=== PATIENT | male | born 1995 | race African-American/Black ===

== ENCOUNTER 2017-09-06 11:55 | Emergency (ER) | payer BC | END 2017-09-06 12:15 | LOC: JD.ED 11:55 | DX: Z53.21 Procedure and treatment not carried out due to patient leaving prior to being seen by health care provider (principal) ==

== ENCOUNTER 2019-08-06 11:58 | Emergency (ER) | payer BC ==
[2019-08-06] MEDS ORDERED: Ketorolac 60 MG/2 ML SDV IM ONE (12:24)
--- NOTE | 2019-08-06 12:26 | EDM.PDOC ---
ED HPI GENERAL MEDICAL PROBLEM - General Chief Complaint: ENT Problem Stated Complaint: DENTAL COMPLAINT Time Seen by Provider: 08/06/19 12:03 Source of Information: Reports: Patient, RN Notes Reviewed History Limitations: Reports: No Limitations - History of Present Illness INITIAL COMMENTS - FREE TEXT/NARRATIVE: Patient is a 24-year-old male who presents to the ED for the evaluation of a dental complaint. Patient notes that he has been having some issues with a tooth on the upper left molar side, this started around 2 or 3 days ago. Patient states that the pain radiates into his left ear, and gives him a headache at times. Patient notes he is from [place], and has not seen a dentist in [facility], but states that he had a dental cleaning around 6 or 7 months ago. Patient has been taking some Tylenol for pain relief, and this is not been providing much relief at all. Patient thought that he may have had a fever 1 day ago, but did not have a thermometer to check this at home. He states that he felt hot and cold. Patient would rate his pain at an 8 out of 10 today. He denies any chest pain, shortness of breath, nausea/vomiting/ diarrhea, or throat pain at this time. 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 Left Oral/Mouth Pain Score (Numeric/FACES): 8 - Related Data Allergies Allergy/AdvReac Type Severity Reaction Status Date / Time No Known Allergies Allergy Verified 08/06/19 12:07 Home Meds: Home Meds Amoxicillin/Clavulanate K [Augmentin 875-125 MG] 1 tab PO BID #14 tablet [Rx] Past Medical History - Past Health History Medical/Surgical History: Denies Medical/Surgical History Social & Family History - Tobacco Use Smoking Status *Q: Never Smoker - Caffeine Use Caffeine Use: Reports: Tea - Recreational Drug Use Recreational Drug Use: No ED ROS ENT - Review of Systems Review Of Systems: See Below Constitutional: Denies: Fever, Chills, Decreased Appetite HEENT: Reports: Dental Pain (Left upper molar). Denies: Ear Pain, Throat Pain Respiratory: Denies: Shortness of Breath Cardiovascular: Denies: Chest Pain GI/Abdominal: Denies: Diarrhea, Nausea, Vomiting Neurological: Reports: Headache (sometimes from the toothache) ED EXAM, ENT - Physical Exam Exam: See Below Exam Limited By: No Limitations General Appearance: Alert, WD/WN, No Apparent Distress Eye Exam: Bilateral Eye: EOMI, Normal Inspection, PERRL Ears: Normal External Exam, Normal Canal, Hearing Grossly Normal, Normal TMs Nose: Normal Inspection Mouth/Throat: Normal Inspection, Normal Gums, Normal Lips, Normal Oropharynx, Normal Teeth (dentition appears in fair repair), Dental Pain (dental juan on medial side of Left upper molar, this did seem to be the cause of his pain). No : Tonsillar Swelling, Trismus Head: Atraumatic, Normocephalic Neck: Normal Inspection, Supple, Non-Tender, Full Range of Motion Respiratory/Chest: No Respiratory Distress, Lungs Clear, Normal Breath Sounds, No Accessory Muscle Use, Chest Non-Tender Cardiovascular: Normal Peripheral Pulses, Regular Rate, Rhythm, No Murmur GI/Abdominal: Normal Bowel Sounds, Soft, Non-Tender, No Distention, No Mass Extremities: Normal Inspection, Normal Capillary Refill Neurological: Alert, Oriented, Normal Cognition, No Motor/Sensory Deficits Psychiatric: Normal Affect, Normal Mood Skin: Warm, Dry, Intact, Normal Color, No Rash Course - Vital Signs Last Recorded V/S: Last Vital Signs Temp 98.4 F 08/06/19 12:03 Pulse 56 L 08/06/19 12:03 Resp 18 08/06/19 12:03 BP 125/77 08/06/19 12:03 Pulse Ox 100 08/06/19 12:03 - Orders/Labs/Meds Meds: Medications Discontinued Medications Generic Name Dose Route Start Last Admin Trade Name Freq PRN Reason Stop Dose Admin Ketorolac Tromethamine 60 mg 08/06/19 12:24 08/06/19 12:29 Toradol IM 08/06/19 12:25 60 mg ONETIME ONE Administration - Re-Assessments/Exams Free Text/Narrative Re-Assessment/Exam: 08/06/19 12:24 Patient presents to the ED for evaluation of a dental complaint. Do suspect that he has pain related to a cavity that is infected, on the left upper molar side. We will give him a 60 mg IM Toradol for initial pain relief, and prescribed some antibiotics and have him follow-up with a dentist for definitive management. Departure - Departure Time of Disposition: 12:25 Disposition: Home, Self-Care 01 Condition: Fair Clinical Impression: Dental caries - Discharge Information *PRESCRIPTION DRUG MONITORING PROGRAM REVIEWED*: No *COPY OF PRESCRIPTION DRUG MONITORING REPORT IN PATIENT ELIZABETH: No Prescriptions: Amoxicillin/Clavulanate K [Augmentin 875-125 MG] 1 tab PO BID #14 tablet Instructions: Diet and Dental Disease Referrals: PCP,None [Primary Care Provider] - Forms: ED Department Discharge, ED Return to Work/School Form Additional Instructions: You have been evaluated in the ED for your dental pain. You have been provided with a script for Augmentin. This was electronically sent to [facility]. Please take this medication as directed. (1 tab twice daily for 7 days or until gone). This antibiotic can cause diarrhea, recommend that you start a probiotic while taking this medication. Aleve provides good pain relief for dental pain. Please take 1-2 tabs twice daily as needed for pain. You may use hot pack/ ice packs to the affected area as tolerated in 15-20 minute intervals. You will ultimately need to find a dentist to provide definitive management of your dental pain. The [facility] in [place], [place], , is a clinic that has been known to take people that do not have dental insurance, and may provide payment plans. You might want to check with this provider, regarding your dental pain. Please return to the ED if your symptoms change or worsen.
== END 2019-08-06 12:39 | disposition home or self-care (01) ==
LOC: JD.ED 11:58
DX: K02.9 Dental caries, unspecified (principal)
CPT/HCPCS: 96372; 99282; J1885; 99283

== ENCOUNTER 2019-09-21 12:08 | Emergency (ER) | payer SELFPAY ==
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
== END 2019-09-21 12:54 | disposition home or self-care (01) ==
LOC: JD.ED 12:08
DX: B35.6 Tinea cruris (principal); F17.210 Nicotine dependence, cigarettes, uncomplicated
CPT/HCPCS: 99282

== ENCOUNTER 2019-11-17 07:46 | Emergency (ER) | payer OTHER ==
--- NOTE | 2019-11-17 08:24 | EDM.PDOC ---
ED HPI GENERAL MEDICAL PROBLEM - General Chief Complaint: Respiratory Problem Stated Complaint: COUGH Time Seen by Provider: 11/17/19 08:06 Source of Information: Reports: Patient History Limitations: Reports: No Limitations - History of Present Illness INITIAL COMMENTS - FREE TEXT/NARRATIVE: The patient presents with a cough, congestion and runny nose. This has been going no for over a week. He does not think he has a fever. He has no ear pain. He does have a sore throat. He has some chest pain with coughing. He has no abdominal pain, nausea or vomiting. Onset: Gradual Duration: Week(s): (1) Quality: Reports: Ache Severity: Mild Improves with: Reports: None Worsens with: Reports: None Associated Symptoms: Reports: Chest Pain, Cough. Denies: Fever/Chills, Headaches, Nausea/Vomiting, Shortness of Breath Throat Pain Score (Numeric/FACES): 7 - Related Data Allergies Allergy/AdvReac Type Severity Reaction Status Date / Time No Known Allergies Allergy Verified 11/17/19 08:00 Home Meds: Home Meds Amoxicillin 875 mg PO BID #20 tab 11/17/19 [Rx] Codeine/Promethazine [Phenergan with Codeine] 5 - 10 ml PO Q6HR PRN #300 ml [Rx] Past Medical History - Past Health History Medical/Surgical History: Denies Medical/Surgical History Cardiovascular History: Reports: Other (See Below) Other Cardiovascular History: enlarged aortic valve, Aortic vlave leak Social & Family History - Tobacco Use Smoking Status *Q: Never Smoker Second Hand Smoke Exposure: No - Caffeine Use Caffeine Use: Reports: None - Alcohol Use Days Per Week of Alcohol Use: 1 Number of Drinks Per Day: 2 Total Drinks Per Week: 2 - Recreational Drug Use Recreational Drug Use: Yes Recreational Drug Type: Reports: Marijuana/Hashish Other Recreational Drug Type: 2-3 times a week Recreational Drug Use Frequency: Weekly ED ROS GENERAL - Review of Systems Review Of Systems: See Below Constitutional: Reports: No Symptoms HEENT: Reports: Other (congestion and runny nose) Respiratory: Reports: Cough Cardiovascular: Reports: No Symptoms Endocrine: Reports: No Symptoms GI/Abdominal: Reports: No Symptoms ED EXAM, GENERAL - Physical Exam Exam: See Below Exam Limited By: No Limitations General Appearance: Alert, No Apparent Distress Ears: Normal External Exam Nose: Normal Inspection Head: Atraumatic, Normocephalic Neck: Normal Inspection Respiratory/Chest: No Respiratory Distress, Lungs Clear, Normal Breath Sounds Cardiovascular: Regular Rate, Rhythm, No Edema, No Murmur GI/Abdominal: Soft, Non-Tender, No Organomegaly, No Mass Back Exam: Normal Inspection Extremities: Normal Inspection Course - Vital Signs Last Recorded V/S: Last Vital Signs Temp 98.1 F 11/17/19 08:02 Pulse 60 11/17/19 08:02 Resp 17 11/17/19 08:02 BP 124/80 11/17/19 08:02 Pulse Ox 100 11/17/19 08:02 Departure - Departure Time of Disposition: 08:25 Disposition: Home, Self-Care 01 Condition: Good Clinical Impression: Bronchitis Sinusitis Qualifiers: Sinusitis location: unspecified location Chronicity: acute Recurrence: non- recurrent Qualified Code(s): J01.90 - Acute sinusitis, unspecified - Discharge Information *PRESCRIPTION DRUG MONITORING PROGRAM REVIEWED*: Not Applicable *COPY OF PRESCRIPTION DRUG MONITORING REPORT IN PATIENT ELIZABETH: Not Applicable Prescriptions: Codeine/Promethazine [Phenergan with Codeine] 5 - 10 ml PO Q6HR PRN #300 ml PRN Reason: Cough Amoxicillin 875 mg PO BID #20 tab Referrals: PCP,None [Primary Care Provider] - Additional Instructions: Take the amoxicillin 2 times per day for 10 days. Take tylenol or motrin for any fever. Take the phenergan with codeine 5 to 10mls every 6 hours as needed for cough. Please return if you are worse. Sepsis Event Note - Evaluation Sepsis Screening Result: No Definite Risk - Focused Exam Vital Signs: Vital Signs Temp Pulse Resp BP Pulse Ox 11/17/19 08:02 98.1 F 60 17 124/80 100 Date Exam was Performed: 11/17/19 Time Exam was Performed: 08:19
== END 2019-11-17 08:30 | disposition home or self-care (01) ==
LOC: JD.ED 07:46
DX: J01.90 Acute sinusitis, unspecified (principal); J40 Bronchitis, not specified as acute or chronic
CPT/HCPCS: 99283

== ENCOUNTER 2020-03-30 23:15 | Emergency (ER) | payer MEDICAID, OTHER ==
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
[2020-03-31] MEDS ORDERED: Acetaminophen 325 MG Tab PO ONE (00:11)
--- NOTE | 2020-03-31 06:29 | CR ---
Right hand: 4 views of the right hand were obtained. Comparison: No previous and study. Joint spaces are preserved. No fracture, dislocation or other bony abnormality is appreciated. Impression: 1. Nothing acute is appreciated on right hand exam. Diagnostic code #1 This report was dictated in MDT
== END 2020-03-31 02:09 | disposition home or self-care (01) ==
LOC: JD.ED 23:15
DX: S60.041A Contusion of right ring finger without damage to nail, initial encounter (principal); S60.031A Contusion of right middle finger without damage to nail, initial encounter; X58.XXXA Exposure to other specified factors, initial encounter
CPT/HCPCS: 73130-26-RT; 73130-RT; 99282; 99283; A9270-GY

== ENCOUNTER 2020-04-25 03:33 | Emergency (ER) | payer MEDICAID ==
--- NOTE | 2020-04-25 03:47 | EDM.PDOC ---
ED HPI GENERAL MEDICAL PROBLEM - General Chief Complaint: ENT Problem Stated Complaint: left side tooth pain Time Seen by Provider: 04/25/20 03:40 Source of Information: Reports: Patient History Limitations: Reports: No Limitations - History of Present Illness INITIAL COMMENTS - FREE TEXT/NARRATIVE: The patient presents with left upper dental pain. He says he has been dealing with this for 2 months. He has no dental insurance and he went to a dentist and he needs his wisdom teeth removed. He does not have the money. Onset: Gradual Duration: Week(s): Location: Reports: Other (Left upper jaw) Quality: Reports: Sharp Severity: Severe Improves with: Reports: None Worsens with: Reports: None Associated Symptoms: Reports: No Other Symptoms Left Upper Tooth/Teeth Pain Score (Numeric/FACES): 8 - Related Data Allergies Allergy/AdvReac Type Severity Reaction Status Date / Time No Known Allergies Allergy Verified 04/25/20 03:42 Past Medical History - Past Health History Medical/Surgical History: Denies Medical/Surgical History Cardiovascular History: Reports: Other (See Below) Other Cardiovascular History: enlarged aortic valve, Aortic vlave leak Social & Family History - Caffeine Use Caffeine Use: Reports: None ED ROS ENT - Review of Systems Review Of Systems: See Below Constitutional: Reports: No Symptoms HEENT: Reports: Dental Pain Respiratory: Reports: No Symptoms Cardiovascular: Reports: No Symptoms Endocrine: Reports: No Symptoms GI/Abdominal: Reports: No Symptoms ED EXAM, ENT - Physical Exam Exam: See Below Exam Limited By: No Limitations General Appearance: Alert, No Apparent Distress Ears: Normal External Exam Nose: Normal Inspection Mouth/Throat: Dental Pain, Other (Pain upon palpation with erythema to the left upper gum line near the 3rd molar) Head: Atraumatic, Normocephalic Neck: Normal Inspection Course - Vital Signs Last Recorded V/S: Last Vital Signs Temp 97.6 F 04/25/20 03:38 Pulse 67 04/25/20 03:38 Resp 20 04/25/20 03:38 BP 147/93 H 04/25/20 03:38 Pulse Ox 100 04/25/20 03:38 Departure - Departure Time of Disposition: 03:45 Disposition: Home, Self-Care 01 Condition: Good Clinical Impression: Pain, dental, Dental abscess - Discharge Information *PRESCRIPTION DRUG MONITORING PROGRAM REVIEWED*: Not Applicable *COPY OF PRESCRIPTION DRUG MONITORING REPORT IN PATIENT ELIZABETH: Not Applicable Additional Instructions: Take the medication as prescribed. Follow up with a dentist. Please return if you are worse. Sepsis Event Note (ED) - Evaluation Sepsis Screening Result: No Definite Risk - Focused Exam Vital Signs: Vital Signs Temp Pulse Resp BP Pulse Ox 04/25/20 03:38 97.6 F 67 20 147/93 H 100
== END 2020-04-25 03:52 | disposition home or self-care (01) ==
LOC: JD.ED 03:33
DX: K04.7 Periapical abscess without sinus (principal)
CPT/HCPCS: 99282